=== PATIENT | male | born 1965 | race Caucasian/White ===

== ENCOUNTER 2016-10-17 17:31 | Observation (INO) | payer OTHER ==
[~2016-10-17] VITALS: Ht 180.3 cm; Wt 85.7 kg
--- NOTE | ~2016-10-17 | EKG ---
PATIENT: LIBERTAD SEO UNIT #: [id number] Ventricular Rate: 59 BPM Atrial Rate: 59 BPM P-R Interval: 156 ms QRS Duration: 98 ms Q-T Interval: 436 ms QTC Calculation(Bezet): 431 ms P [place]: 66 degrees Calculated R [place]: 18 degrees Calculated T [place]: 31 degrees Diagnosis Line: Sinus bradycardia Diagnosis Line: Otherwise normal ECG Diagnosis Line: When compared with ECG of 17-OCT-2016 17:36, Diagnosis Line: (unconfirmed) Diagnosis Line: No significant change was found Diagnosis Line: Confirmed by ANDREZ LEDESMA MD ([id number]) on Diagnosis Line: 10/20/2016 8:07:51 PM INTERPRETING MD: ABIEL
--- NOTE | ~2016-10-17 | CO ---
Unit #: [id number] #: [id number] Patient: LIBERTAD SEO [id number] [facility]. [address] [address] [id number] I MR#: [id number] NAME: LIBERTAD SEO ROOM: 568 Age: 51 Sex: M Admission Date: 10/17/2016 : 1965 Attending Physician: Moira Tavares M.D. Primary Care Physician: No Primary Care Physician CONSULTATION REPORT REASON FOR CONSULT Chest pain. HISTORY OF PRESENT ILLNESS This is a pleasant 51-year-old male with no significant past medical history. He states he was at home yesterday in his typical state of health when he noticed several transient, short-lasting episodes of chest tightness, left chest wall, while he was smoking his cigarette. He states these lasted maybe a few minutes, but he also noticed some associated numbness in his left arm, as well as shortness of breath and some mild sweating. He states he stood up and walked around for a few minutes, and the pain resolved spontaneously. The patient only takes a baby aspirin daily. 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 There is no history of hypertension, hyperlipidemia or diabetes mellitus. He does smoke approximately 2 packs per day and has done so for the last 30 years. The patient states he normally does not follow with a physician and has not seen one in several years. He was brought to the emergency room and evaluated. Initial EKG shows sinus bradycardia, 59 beats per minute, QTc interval 431 msec. No acute ischemic change. Nhrzw-ib-nquk troponins have been negative. We were asked to see and evaluate for the above reasons. PAST MEDICAL HISTORY Tobacco use. PAST SURGICAL HISTORY 1. Back surgery in 1997. 2. Tonsillectomy. ALLERGIES Penicillin. HOME MEDICATIONS Aspirin 81 mg. SOCIAL HISTORY The patient does report he smokes about 2 packs per day for the last 30 years. He is a lunch truck operator. He drinks 1-2 bourbons daily. He denies any illicit drug use. He lives with his son and his girlfriend. FAMILY HISTORY Positive for coronary artery disease with [place] in his father. Positive for hypertension in his mother and positive for coronary artery disease, [place] and stents in his brother in his 50s. Unit #: [id number] #: [id number] Patient: LIBERTAD SEO REVIEW OF SYSTEMS A 12-point review of systems has been reviewed and is negative except for what was stated above. PHYSICAL EXAM VITAL SIGNS: Temperature 98.3, respiratory rate 16, pulse 62, blood pressure 117/75, BMI is 26. GENERAL: This is a pleasant male in no acute distress in the cardiac stress lab. HEENT: Head is atraumatic, normocephalic. Pupils are equal and round. NECK: Trachea is midline. No lymphadenopathy or thyromegaly. Possible carotid bruits. CARDIOVASCULAR: S1, S2. No murmur, gallop or rub. Regular rate and rhythm. LUNGS: Clear to auscultation. No adventitious breath sounds. No rales. No rhonchi. No wheezes. ABDOMEN: Soft, nontender, nondistended. Bowel sounds are present. EXTREMITIES: No clubbing, cyanosis or edema. Pulses are palpable. NEUROLOGIC: The patient is awake, alert and oriented. He follows commands with ease, moves all extremities appropriately. DIAGNOSTIC STUDIES LABORATORY: Glucose 89, BUN 10, creatinine 0.4, sodium 136, potassium 3.5, chloride 105, CO2 24. Troponins have been less than 0.03. Lipid panel shows cholesterol 179, triglycerides 70, LDL 113, HDL 52, LDL/HDL ratio 2. TSH is 2.4. Alcohol level less than 5. Coags were within normal limits. Hemoglobin 16.7, hematocrit 49.6, WBC 6.2, platelet count 170. IMAGING: Chest x-ray shows the lungs to be clear. Heart size is normal. No significant abnormalities are seen. CARDIOVASCULAR: EKG - Sinus bradycardia, rate of 59 beats per minute, QTc interval 431 msec. No acute ischemic changes noted. IMPRESSION 1. Atypical chest pain, rule out acute coronary syndrome. 2. Tobacco abuse. 3. Chronic back pain with history of back surgery in 1997. 4. Family history of coronary artery disease. PLAN The patient has been admitted. Will trend cardiac enzymes. He will be scheduled for exercise Cardiolite today to rule out any underlying coronary artery disease. Will also have two-D echocardiogram to look at the structural anatomy of his heart, as well as LV systolic function. Will also check fasting lipid panel. The patient does have risk factors for coronary artery disease, which include hypertension, tobacco use and a family history for coronary artery disease. He was also advised on the importance of lifestyle modification, as well as smoking cessation. Carotid bruit was noted on examination. The patient will also have a bilateral carotid Doppler. Further recommendations to follow pending the results of the nuclear stress test. If negative, the patient may be discharged later today. Dictated by... Danyelle Todd A.P.R.N. for Moira Tavares M.D. Unit #: [id number] #: [id number] Patient: RAYRAYLIBERTAD LMW/db TD: 10/18/2016 15:13 JOB #: [id number] CONSULTATION REPORT Page 1 of 1 X Danyelle Todd APRN X CONSULTATION REPORT
--- NOTE | ~2016-10-17 | US37 ---
[facility] A Service of [facility] RADIOLOGY TEXT RESULTS PATIENT: LIBERTAD SEO LOCATION: [facility] 568-01 : [birth year] UNIT #: [id number] AGE: [address]: Moira Tavares MD SEX: M ORDER DR: [id number] [facility] [address] [facility]. [place], [place] [address] [id number] I MR#: [id number] Acc #: [id number] NAME: LIBERTAD SEO : 1965 SEX: M STUDY DATE/TIME: 10/18/2016 9:24 UNIT: [facility] ROOM: [facility] STUDY DESCRIPTION: US Carotid W/Doppler Bilateral Attending Physician: Moira Tavares M.D. Ordering Physician: Danyelle Todd A.P.R.N. Primary Care Physician: No Primary Care Physician MEDICAL IMAGING REPORT This report is preliminary unless electronic signature is present EXAM Carotid duplex scan. DATE OF EXAMINATION 10/18/2016 HISTORY Dizziness. FINDINGS The right common carotid artery has no plaque. The right internal and external carotid arteries are patent without plaque. Peak systolic velocity in the proximal right internal carotid artery is 52 cm/sec with an end-diastolic velocity of 17 cm/sec. The ICA:CCA ratio on the right is 0.77. Peak systolic velocity in the right external carotid artery is 74 cm/sec. The right vertebral artery is patent but retrograde flow is noted. The left common carotid artery has no plaque. The left internal and external carotid arteries are patent without plaque. Peak systolic velocity in the distal left internal carotid artery is 60 cm/sec with an end-diastolic velocity of 30 cm/sec. The ICA:CCA ratio on the left is 0.74. Peak systolic velocity in the left external carotid artery is 81 cm/sec. The left vertebral artery is patent with antegrade flow. IMPRESSION Normal examination of the carotid arteries bilaterally. No significant stenosis in the internal or external carotid artery on either side. 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 Patent left vertebral artery with antegrade flow. [facility] A Service of [facility] RADIOLOGY TEXT RESULTS PATIENT: LIBERTAD SEO LOCATION: [facility] 568-01 : [birth year] UNIT #: [id number] AGE: [address]: Moira Tavares MD SEX: M ORDER DR: Dictated by... Matt Goodrich M.D. THIS IS AN ELECTRONICALLY VERIFIED REPORT Matt Goodrich M.D. at 10/20/2016 7:46 AM MARILYNN/jaiden TD: 10/18/2016 16:17 JOB #: [id number] MEDICAL IMAGING REPORT Page 1 of 1 COPY
--- NOTE | ~2016-10-17 | EKG ---
PATIENT: LIBERTAD SEO UNIT #: [id number] Ventricular Rate: 85 BPM Atrial Rate: 85 BPM P-R Interval: 146 ms QRS Duration: 92 ms Q-T Interval: 376 ms QTC Calculation(Bezet): 447 ms P [employer]: 69 degrees Calculated R [employer]: -6 degrees Calculated T [employer]: 36 degrees Diagnosis Line: Normal sinus rhythm Diagnosis Line: Normal ECG Diagnosis Line: When compared with ECG of 09-OCT-2013 10:20, Diagnosis Line: Questionable change in QRS axis Diagnosis Line: Confirmed by EDWIGE ONEILL MD ([id number]) on Diagnosis Line: 10/19/2016 11:14:37 PM INTERPRETING MD: MAI ELIZONDO
--- NOTE | ~2016-10-17 | TH ---
Unit #: [id number] #: [id number] Patient: LIBERTAD SEO [id number] [address] [address] [id number] I MR#: [id number] NAME: LIBERTAD SEO : 1965 SEX: M STUDY DATE/TIME: 10/18/2016 UNIT: [facility] ROOM: [facility] STUDY DESCRIPTION: Lexiscan stress test - nuclear Attending Physician: Moira Tavares M.D. Primary Care Physician: No Primary Care Physician CARDIOLOGY REPORT PROCEDURE PERFORMED Lexiscan Cardiolite stress test - Nuclear portion. PROCEDURE Using technetium 99m-labeled Cardiolite, rest and stress SPECT images were obtained. Multiple SPECT images were obtained in various views, including horizontal and vertical long axis and short axis views of the left ventricle. Images were obtained by gated SPECT method. The patient was administered 11.04 mCi of Cardiolite at rest. The patient was administered 33.4 mCi of Cardiolite after Lexiscan infusion was completed. On the stress images, there is a small area of mildly decreased tracer uptake activity in the inferoseptal wall. The rest images show normal perfusion. Comparing the rest and stress images, a small area of stress-induced ischemia involving the inferoseptal wall of the left ventricle cannot be ruled out. The left ventricular ejection fraction is calculated to be 40%. There is inferoseptal hypokinesis seen. The left ventricular cavity is mildly dilated both at rest and post stress. CONCLUSION 1. A small area of stress-induced ischemia involving the inferoseptal wall of the left ventricle cannot be ruled out. 2. The left ventricular ejection fraction is calculated to be 40%. 3. There is suspicion for inferoseptal hypokinesis. 4. The left ventricular cavity is mildly dilated both at rest and post stress. 5. Mildly abnormal Lexiscan Cardiolite stress test. Clinical correlation is requested. Dictated by... Jodi Miles TD: 10/18/2016 12:07 JOB #: [id number] Unit #: [id number] #: [id number] Patient: LIBERTAD SEO CARDIOLOGY REPORT Page 1 of 1 X Moira Tavares MD <ELECTRONICALLY SIGNED> 10/18/16 [facility] CARDIOLOGY REPORT
--- NOTE | ~2016-10-17 | HP ---
Unit #: [id number] #: [id number] Patient: LIBERTAD SEO [id number] [address] [address] [id number] I MR#: [id number] NAME: LIBERTAD SEO ROOM: 568 Age: 51 Sex: M Admission Date: 10/17/2016 : 1965 Attending Physician: Moira Tavares M.D. Primary Care Physician: Primary Care Physician No HISTORY AND PHYSICAL REVISED REPORT SEE ADDENDUM REASON FOR CONSULT Chest pain. HISTORY OF PRESENT ILLNESS This is a pleasant 51-year-old male with no significant past medical history. He states he was at home yesterday in his typical state of health when he noticed several transient, short-lasting episodes of chest tightness, left chest wall, while he was smoking his cigarette. He states these lasted maybe a few minutes, but he also noticed some associated numbness in his left arm, as well as shortness of breath and some mild sweating. He states he stood up and walked around for a few minutes, and the pain resolved spontaneously. The patient only takes a baby aspirin daily. 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 There is no history of hypertension, hyperlipidemia or diabetes mellitus. He does smoke approximately 2 packs per day and has done so for the last 30 years. The patient states he normally does not follow with a physician and has not seen one in several years. He was brought to the emergency room and evaluated. Initial EKG shows sinus bradycardia, 59 beats per minute, QTc interval 431 msec. No acute ischemic change. Psnnt-xo-dggy troponins have been negative. We were asked to see and evaluate for the above reasons. PAST MEDICAL HISTORY Tobacco use. PAST SURGICAL HISTORY 1. Back surgery in 1997. 2. Tonsillectomy. ALLERGIES Penicillin. HOME MEDICATIONS Aspirin 81 mg. SOCIAL HISTORY The patient does report he smokes about 2 packs per day for the last 30 years. 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 He denies any illicit drug use. He lives with his son and his girlfriend. Unit #: [id number] #: [id number] Patient: LIBERTAD SEO FAMILY HISTORY Positive for coronary artery disease with [place] in his father. Positive for hypertension in his mother and positive for coronary artery disease, [place] and stents in his brother in his 50s. REVIEW OF SYSTEMS A 12-point review of systems has been reviewed and is negative except for what was stated above. PHYSICAL EXAM VITAL SIGNS: Temperature 98.3, respiratory rate 16, pulse 62, blood pressure 117/75, BMI is 26. GENERAL: This is a pleasant male in no acute distress in the cardiac stress lab. HEENT: Head is atraumatic, normocephalic. Pupils are equal and round. NECK: Trachea is midline. No lymphadenopathy or thyromegaly. Possible carotid bruits. CARDIOVASCULAR: S1, S2. No murmur, gallop or rub. Regular rate and rhythm. LUNGS: Clear to auscultation. No adventitious breath sounds. No rales. No rhonchi. No wheezes. ABDOMEN: Soft, nontender, nondistended. Bowel sounds are present. EXTREMITIES: No clubbing, cyanosis or edema. Pulses are palpable. NEUROLOGIC: The patient is awake, alert and oriented. He follows commands with ease, moves all extremities appropriately. DIAGNOSTIC STUDIES LABORATORY: Glucose 89, BUN 10, creatinine 0.4, sodium 136, potassium 3.5, chloride 105, CO2 24. Troponins have been less than 0.03. Lipid panel shows cholesterol 179, triglycerides 70, LDL 113, HDL 52, LDL/HDL ratio 2. TSH is 2.4. Alcohol level less than 5. Coags were within normal limits. Hemoglobin 16.7, hematocrit 49.6, WBC 6.2, platelet count 170. IMAGING: Chest x-ray shows the lungs to be clear. Heart size is normal. No significant abnormalities are seen. CARDIOVASCULAR: EKG - Sinus bradycardia, rate of 59 beats per minute, QTc interval 431 msec. No acute ischemic changes noted. IMPRESSION 1. Atypical chest pain, rule out acute coronary syndrome. 2. Tobacco abuse. 3. Chronic back pain with history of back surgery in 1997. 4. Family history of coronary artery disease. PLAN The patient has been admitted. Will trend cardiac enzymes. He will be scheduled for exercise Cardiolite today to rule out any underlying coronary artery disease. Will also have two-D echocardiogram to look at the structural anatomy of his heart, as well as LV systolic function. Will also check fasting lipid panel. The patient does have risk factors for coronary artery disease, which include hypertension, tobacco use and a family history for coronary artery disease. He was also advised on the importance of lifestyle modification, as well as smoking cessation. Carotid bruit was noted on examination. The patient will also have a bilateral carotid Doppler. Further recommendations to follow pending the results of the nuclear stress test. If negative, the patient may be Unit #: [id number] #: [id number] Patient: LIBERTAD SEO discharged later today. Dictated by... Elio Crenshaw M.D. LMW/db TD: 10/18/2016 15:13 JOB #: [id number] ADDENDUM This patient has been seen and evaluated today. He underwent Lexiscan Cardiolite after the patient was only able to perform exercise Cardiolite for approximately 7 minutes and 45 seconds. Test had to be stopped secondary to increasing shortness of breath and leg fatigue. Patient had Lexiscan Cardiolite, which showed an area of apical septal ischemia. Due to the patient's risk factors of significant family history of coronary artery disease and his tobacco use, would recommend cardiac catheterization as an outpatient. The patient has ruled out for any acute coronary syndrome. He is completely asymptomatic. Denies any chest pain. His rhythm has been completely stable. He will be discharged home today with the following medicines: 81 mg of aspirin daily, carvedilol 3.125 mg p.o. b.i.d., and lisinopril 5 mg p.o. q.h.s. New medications and side effects were explained to the patient. The patient, while he was here, also underwent carotid Dopplers. Those results are currently pending. He has been given information and will be scheduled for outpatient cardiac catheterization on October 21. I have reviewed cardiac catheterization instructions with him as well as risks and benefits and he is agreeable and willing to proceed. Our office will notify the patient of the time of the procedure. Patient was also sent home with Nitrostat and given instructions on how to take it. If he continues to have recurrence of chest pain, shortness of breath, and nitroglycerin does not relieve his pain; he is advised to come to the emergency room for evaluation. Dictated by Danyelle Todd A.P.R.N. LMW/pc TD: 10/18/2016 13:13 JOB #: [id number] HISTORY AND PHYSICAL Page 1 of 1 X Danyelle Todd APRN HISTORY AND PHYSICAL
--- NOTE | ~2016-10-17 | CO ---
Unit #: [id number] #: [id number] Patient: LIBERTAD SEO [id number] [address] [place], [place] [address] [id number] I MR#: [id number] NAME: LIBERTAD SEO ROOM: 568 Age: 51 Sex: M Admission Date: 10/17/2016 : 1965 Attending Physician: Moira Tavares M.D. CONSULTATION REPORT REASON FOR CONSULTATION Chest pain. HISTORY OF PRESENT ILLNESS This is a pleasant 51-year-old, male with no significant past medical history. He states he was at home yesterday in his typical state of health, when he noticed several transient short lasting episodes of chest tightness, left chest wall while he was smoking a cigarette. He states this lasted maybe a few minutes, but he also noticed some associated numbness in his left arm as well as shortness of breath and some mild sweating. He states he stood up and walked around for a few minutes, and the pain resolved spontaneously. The patient only takes a baby aspirin daily. 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 There was no history of hypertension, hyperlipidemia, or diabetes mellitus. He does smoke approximately two packs per day and has done so for the last 30 years. The patient states he normally does not follow with a physician and has not seen one in several years. He was brought to the emergency room and evaluated. Initial EKG shows sinus bradycardia of 59 beats per minute, QTc interval 431 milliseconds. No acute ischemic change. Point of care troponins have been negative. We were asked to see and evaluate for the above reasons. PAST MEDICAL HISTORY Tobacco use. PAST SURGICAL HISTORY 1. Back surgery in 1997. 2. Tonsillectomy. ALLERGIES Penicillin. HOME MEDICATIONS 81 mg aspirin. SOCIAL HISTORY The patient does report he smokes about two packs per day for the last 30 years. 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 He denies any illicit drug use. He lives with his son and his girlfriend. FAMILY HISTORY Positive for coronary artery disease with [place] in his father. Positive for hypertension in his mother and positive for coronary artery disease. [place] and stents in his brother in his 50s. Unit #: [id number] #: [id number] Patient: LIBERTAD SEO REVIEW OF SYSTEMS Has been reviewed and is negative except for what was stated above. PHYSICAL EXAMINATION VITAL SIGNS: Temperature 98.3, respiratory rate 16, pulse 62, blood pressure 117/75, BMI is 26. GENERAL: This is a pleasant male, in no acute distress in the cardiac stress lab. HEENT: Head is atraumatic and normocephalic. Pupils are equal and round. NECK: Trachea is midline. No lymphadenopathy or thyromegaly. Possible carotid bruits. CARDIOVASCULAR: S1 and S2. No murmur, gallop, or rub. Regular rate and rhythm. LUNGS: Clear to auscultation. No adventitious breath sounds. No rales, no rhonchi, no wheezes. ABDOMEN: Soft, nontender, and nondistended. Bowel sounds are present. EXTREMITIES: No clubbing, cyanosis, or edema. Pulses are palpable. NEUROLOGIC: The patient is awake, alert, and oriented. He follows commands with ease. Moves all extremities appropriately. DIAGNOSTIC STUDIES LABORATORY: Glucose 89, BUN 10, creatinine 0.4, sodium 136, potassium 3.5, chloride 105, CO2 of 24. Troponins have been less than 0.03. Lipid panel shows cholesterol of 179, triglyceride of 70, LDL of 113, HDL 52, LDL/HDL ratio is 2. TSH is 2.40. Alcohol level less than 5. Coags were within normal limits. Hemoglobin 16.7, hematocrit 49.6, WBC 6.2, ad platelet count 170. Chest x-ray shows the lungs to be clear, heart size is normal. No significant abnormalities were seen. CARDIOVASCULAR STUDIES: EKG sinus bradycardia, rate of 59 beats per minute. QTc interval 431 milliseconds. No acute ischemic changes noted. IMPRESSION 1. Atypical chest pain, rule out acute coronary syndrome. 2. Tobacco abuse. 3. Chronic back pain with history of back surgery in 1997. 4. Family history of coronary artery disease. PLAN The patient has been admitted. We will trend cardiac enzymes. He will be scheduled for exercise Cardiolite today to rule out any underlying coronary artery disease. We will also have 2D echocardiogram to look at the structural anatomy of his heart as well as LV systolic function. We will also check fasting lipid panel. The patient does have risk factors for coronary artery disease, which include hypertension, tobacco use, and a family history for coronary artery disease. He was also advised on the importance of lifestyle modification as well as smoking cessation. Further recommendations to follow. Pending results of this nuclear stress test. If negative, the patient may be discharged later today. Carotid bruit was noted on examination. The patient will also have a bilateral carotid Doppler. Dictated by... Danyelle Todd A.P.R.N. LMW/modl Unit #: [id number] #: [id number] Patient: LIBERTAD SEO TD: 10/19/2016 04:01 JOB #: [id number] CONSULTATION REPORT Page 1 of 1 X Danyelle Todd APRN X CONSULTATION REPORT
--- NOTE | ~2016-10-17 | ST ---
Unit #: [id number] #: [id number] Patient: LIBERTAD SEO [id number] [address] [address] [id number] I MR#: [id number] NAME: LIBERTAD SEO : 1965 SEX: M STUDY DATE/TIME: 10/17/2016 UNIT: [facility] ROOM: [facility] STUDY DESCRIPTION: Stress Test Attending Physician: Moira Tavares M.D. Primary Care Physician: No Primary Care Physician CARDIOLOGY REPORT EXAM Stress Test REASON FOR TEST Chest pain. Baseline EKG - normal sinus rhythm, rate of 66 beats/minute. The patient exercised on the treadmill according to Waldemar protocol for a total of 7 minutes 42 seconds achieving 9.60 METs with a resting heart rate of 64 beats/minute reaching a peak heart rate of 120 beats/minute representing 71% of the age predicted heart rate. The patient was unable to continue exercising secondary to increasing shortness of breath and leg fatigue. He requested to stop the test. He denied any complaints of chest pain. There were no ST-T wave changes noted during this part of the exercise stress test. There was no ventricular ectopy. Next, the patient was changed over to Lexiscan Cardiolite. The test was explained to him and he was agreeable and willing to proceed. Lexiscan Cardiolite - Baseline EKG shows normal sinus rhythm, rate of 82 beats/minute. 0.4 mg of Lexiscan was injected per protocol followed by Cardiolite. The patient experienced shortness of breath, nausea during the testing period. There were no ST segment changes noted suggestive for ischemia. There was no ectopy. The test was stopped secondary to protocol completion. IMPRESSION 1. Negative EKG portion of Lexiscan Cardiolite. 2. No ST-T wave changes suggestive of ischemia. 3. The patient had shortness of breath and nausea during the test but denied any complaints of chest pain. 4. There were no arrhythmias. 5. The patient had normal blood pressure response. 6. Please correlate with nuclear imaging. Unit #: [id number] #: [id number] Patient: LIBERTAD SEO Dictated by... Suad CrenshawRCedNCed for Moira Tavares M.D. LMW/df TD: 10/20/2016 07:56 JOB #: [id number] CARDIOLOGY REPORT Page 1 of 1 X Danyelle Todd APRN CARDIOLOGY REPORT
--- NOTE | ~2016-10-17 | CR72 ---
[facility] A Service of [facility] & [facility] RADIOLOGY TEXT RESULTS PATIENT: LIBERTAD SEO LOCATION: [facility] [id number] : [birth year] UNIT #: [id number] AGE: [address]: Moira Tavares MD SEX: M ORDER DR: [id number] [facility] [address] [facility] [place], [place] [address] [id number] I MR#: [id number] Acc #: [id number] NAME: LIBERTAD SEO : 1965 SEX: M STUDY DATE/TIME: 10/17/2016 18:00 UNIT: [facility] ROOM: [facility] STUDY DESCRIPTION: CR Chest Single View Portable Attending Physician: Moira Tavares M.D. Ordering Physician: Ed Doctor [id number] [facility] Primary Care Physician: Primary Care Physician No MEDICAL IMAGING REPORT This report is preliminary unless electronic signature is present EXAM Portable chest HISTORY Chest pain and tightness and cough today. FINDINGS A single AP portable view of the chest shows both lungs to be clear. The heart is normal in size. The mediastinal contour is normal. No significant bone abnormalities are seen. IMPRESSION Normal portable chest. Dictated by... Isidro Garcia M.D. THIS IS AN ELECTRONICALLY VERIFIED REPORT Isidro Garcia M.D. at 10/18/2016 1:15 PM DFL/niurka TD: 10/17/2016 23:58 JOB #: [id number] MEDICAL IMAGING REPORT Page 1 of 1 COPY
[2016-10-17 18:46] LABS: POC - CKMB 2.6 ng/mL (0.0-7.9); POC - TROPONIN <0.05 ng/mL (<=0.05)
[2016-10-17 19:07] LABS: BASOPHIL# 0.1 X10e3 (0-0.3); BASOPHIL% 0.8 % (0-2.5); EOSINOPHIL# 0.3 X10e3 (0-0.7); EOSINOPHIL% 4.4 % (0.0-7.0); HEMATOCRIT 49.6 % (38.0-50.0); HEMOGLOBIN 16.7 gm/dL (13.0-16.0); LYMPHOCYTE# 1.3 X10e3 (1.0-3.5); LYMPHOCYTE% 20.9 % (17.0-45.0); MEAN CELL VOLUME 96.2 FL (83-96); MEAN CORPUSCULAR HEMOGLOBIN 32.5 PG (28-34); MEAN CORPUSCULAR HGB CONC 33.8 g/dL (30-36); MEAN PLATELET VOLUME 10.2 FL (6.5-11.5); MONOCYTE# 0.5 X10e3 (0-1.0); MONOCYTE% 7.4 % (3.0-12.0); NEUTROPHIL# 4.1 X10e3 (1.5-7.1); NEUTROPHIL% 66.5 % (40-75); PLATELET COUNT 170 X10e3 (140-420); RED BLOOD COUNT 5.16 X10e (3.90-5.60); RED CELL DISTRIBUTION WIDTH 13.6 % (11.0-15.5); WHITE BLOOD COUNT 6.2 X10e3 (4.0-10.5)
[2016-10-17 19:09] LABS: DIFF IND NO
[2016-10-17 19:24] LABS: PARTIAL THROMBOPLASTIN TIME 27.3 SECONDS (23.5-31.3); PROTHROMBIN TIME (PATIENT) 10.8 SECONDS (10.0-11.7)
[2016-10-17 19:34] LABS: ALBUMIN SERUM 4.2 g/dL (3.5-5.0); ALKALINE PHOSPHATASE 69 U/L (32-92); ALT (SGPT) 27 U/L (10-40); AST (SGOT) 27 U/L (10-42); BILIRUBIN, DIRECT 0.1 mg/dL (0.0-0.2); BILIRUBIN,INDIRECT 0.3 mg/dL (0.0-0.9); BILIRUBIN,TOTAL 0.4 mg/dL (0.2-2.0); BLOOD UREA NITROGEN 10 mg/dL (9-23); CALCIUM SERUM 8.9 mg/dL (8.4-10.2); CARBON DIOXIDE 24 mmol/L (22-31); CHLORIDE 105 mmol/L (100-111); CREATININE SERUM 0.4 mg/dL (0.6-1.4); GLOM FILT RATE Estimated 135.7 mL/min (>60); GLUCOSE FASTING 89 mg/dL (70-110); POTASSIUM 3.5 mmol/L (3.5-5.1); PROTEIN TOTAL SERUM 7.2 g/dL (6.0-8.3); SODIUM 136 mmol/L (135-145)
[2016-10-17 19:37] LABS: ALCOHOL BLOOD <5 mg/dL ([, 0])
[2016-10-17 20:11] LABS: POC - CKMB 2.3 ng/mL (0.0-7.9); POC - TROPONIN <0.05 ng/mL (<=0.05)
[2016-10-18] MEDS ORDERED: ASPIRIN EC81 M1 PO (01:22)
[2016-10-18] MEDS ORDERED: TUMS300 MG (01:22)
[2016-10-18 02:19] LABS: %MB 2.3 % (0.0-4.0); MB 3.1 ng/ml
[2016-10-18 07:59] LABS: CHOLESTEROL 179 mg/dL (0-200); HDL CHOLESTEROL 52 mg/dL (29-75); LDL CHOLESTEROL 113 mg/dL ([, -130]); LDL/HDL RATIO 2 RATIO (0-4); TRIGLYCERIDES 70 mg/dL (10-160)
[2016-10-18 08:07] LABS: %MB 2.5 % (0.0-4.0); MB 2.9 ng/ml
[2016-10-18] MEDS ORDERED: COREG PO (12:41)
[2016-10-18] MEDS ORDERED: ZESTRIL5 MG PO (12:42)
[2016-10-18] MEDS ORDERED: NITROGLYCERIN0.4 MG SL (12:43)
[2016-10-18 12:46] LABS: %MB 2.7 % (0.0-4.0); MB 3.3 ng/ml
== END 2016-10-18 14:16 | disposition home or self-care (01) | DRG 313 ==
LOC: CED 17:31 → CEDOF 20:30 → CED 21:00 → CEDOF 21:00 → C5C 23:32 → CEDOF 23:32 → C5C 10-18 14:16
PROVIDERS: Emergency Medicine; Internal Medicine Cardiovascular Disease
DX: R07.89 Other chest pain (principal); I08.1 Rheumatic disorders of both mitral and tricuspid valves; F17.200 Nicotine dependence, unspecified, uncomplicated; M54.9 Dorsalgia, unspecified; R06.02 Shortness of breath; Z79.82 Long term (current) use of aspirin; Z82.49 Family history of ischemic heart disease and other diseases of the circulatory system; Z88.0 Allergy status to penicillin
CPT/HCPCS: 36415; 71010; 78452; 80048; 80061; 80076; 82550; 82553; 84443; 84484; 85025; 85610; 85730; 93005; 93017; 93306; 93880; 96372; 99285; A9500; G0378; G0480; J1650; J2785